=== PATIENT | male | born 1940 | race Caucasian/White ===

== ENCOUNTER 2021-11-12 06:55 | Observation (INO) ==
[~2021-11-12 06:55] MED LIST: Buffered Lidocaine 1% SYRIN 1 ml INTRADERM ONE; Dexamethasone IV 4 MG/ML VIAL 1 ml VIAL IV SLOW PU ONE; Dexamethasone IV 4 MG/ML VIAL 1 ml VIAL ONE; Famotidine IV 10 MG/ML 2 ml VIAL (20 mg) IV ONE; Lactated Ringers 1000 ml BAG 1,000 ML IV SCH; Lidocaine 2% PF 5 ML VIAL ONE; Midazolam 2 mg/2 ml VIAL 1 mg/ml 2 ml VIAL (2 mg) ONE; Ondansetron 4 mg VIAL 2 MG/ML 2 ml VIAL ONE; Propofol 10 MG/ML 20 ML BTL ONE; Rocuronium 50 mg VIAL 10 mg/ml 5 ml VIAL (50 mg) ONE; Scopolamine 1 mg/72hr PATCH TRANSDERM ONE; fentaNYL 100 mcg/2 ml 50 MCG/ML VIAL ONE
[2021-11-12] MEDS ORDERED: Dexamethasone IV 4 MG/ML VIAL 1 ml VIAL ONE (07:13)
[2021-11-12] MEDS ORDERED: ceFAZolin 2 GM PREMIX 2 GM/50 ML BAG ONE (07:13)
[2021-11-12] MEDS ORDERED: Scopolamine 1 mg/72hr PATCH ONE ×2 (07:13→07:47)
[2021-11-12] MEDS ORDERED: Famotidine IV 10 MG/ML 2 ml VIAL (20 mg) ONE (07:14)
[2021-11-12 07:37] LABS: INR 1.19 (0.86-1.15)
[2021-11-12 07:38] LABS: Platelet Count 109 10^3/uL (150-450)
[2021-11-12 07:41] LABS: Mean Platelet Volume 8.8 fL (7.4-10.4)
[2021-11-12] MEDS ORDERED: ROPIVACAINE 5 MG/ML 30 ML BTL (0.5%) ONE ×2 (07:43→08:00)
[2021-11-12] MEDS ORDERED: fentaNYL 100 mcg/2 ml 50 MCG/ML VIAL IV PRN (07:45)
[2021-11-12] MEDS ORDERED: Naloxone 0.4 mg VIAL 0.4 mg/ml 1 ml VIAL IV PRN (07:45)
[2021-11-12] MEDS ORDERED: Prochlorperazine 5 mg/ml 2 ml VIAL (10 mg) IV PRN (07:45)
[2021-11-12] MEDS ORDERED: Morphine 4 MG/ML VIAL (1 ml) IV PRN (07:45)
[2021-11-12] MEDS ORDERED: fentaNYL 100 mcg/2 ml 50 MCG/ML VIAL ONE ×2 (07:55→11:45)
[2021-11-12] MEDS ORDERED: Midazolam 2 mg/2 ml VIAL 1 mg/ml 2 ml VIAL (2 mg) ONE (07:55)
[2021-11-12] MEDS ORDERED: Acetaminophen IV 1 GM/100ML 100 ML IV ONE (09:30)
[2021-11-12] MEDS ORDERED: HYDROmorphone 0.5 MG/0.5 ML SYRINGE ONE (09:34)
[2021-11-12] MEDS ORDERED: fentaNYL 250 mcg/5 ml 50 MCG/ML 5 ml VIAL (250 MCG) ONE (09:34)
[2021-11-12] MEDS ORDERED: Lactulose 30 ml UDC PO PRN (11:32)
[2021-11-12] MEDS ORDERED: Ondansetron ODT 4 mg TAB 4 MG TAB PO PRN (11:32)
[2021-11-12] MEDS ORDERED: Magnesium Hydroxide LIQ 30 ML UDC PO PRN (11:32)
[2021-11-12] MEDS ORDERED: Morphine 2 MG/ML SYRINGE IV PRN (11:32)
[2021-11-12] MEDS ORDERED: Ondansetron 4 mg VIAL 2 MG/ML 2 ml VIAL IV PRN (11:32)
[2021-11-12] MEDS: Lactated Ringers 1000 ml BAG 1,000 ML IV SCH ×2 (13:32→22:18)
[2021-11-12] MEDS: ceFAZolin 1 GM ADVAN 1 GM in NS 0.9% 50 ML 50 ML IVPB SCH (17:03)
[2021-11-12] MEDS: Magnesium Hydroxide LIQ 30 ML UDC PO SCH (22:08)
[2021-11-13] MEDS: ceFAZolin 1 GM ADVAN 1 GM in NS 0.9% 50 ML 50 ML IVPB SCH ×2 (00:19→08:03)
[2021-11-13 06:25] LABS: Hematocrit 30 % (42-52); Hemoglobin 10.1 g/dL (14.0-18.0); Mean Platelet Volume 8.9 fL (7.4-10.4); Platelet Count 93 10^3/uL (150-450)
[2021-11-13 06:41] LABS: Calcium 7.9 mg/dL (8.6-10.3); Potassium 4.8 mmol/L (3.5-5.0); eGFR CKD-EPI 59.6 (>60)
[2021-11-13 07:51] VITALS: BP 121/62
[2021-11-13] MEDS: Magnesium Hydroxide LIQ 30 ML UDC PO SCH (08:03)
[2021-11-13] MEDS ORDERED: Vitamin THERAPEUTIC TAB PO SCH (09:00)
== END 2021-11-13 11:45 | disposition home or self-care (01) ==
LOC: SSU 06:55 → OR 06:55
PROVIDERS: ADMIT Orthopaedic Surgery Adult Reconstructive Orthopaedic Surgery; ATTEND Orthopaedic Surgery Adult Reconstructive Orthopaedic Surgery